=== PATIENT | male | born 1950 | race Caucasian/White ===

== ENCOUNTER 2018-02-03 18:50 | Emergency (ER) | payer OTHER ==
[2016-05-01 14:12] VITALS: BP 168/81
[~2018-02-03] VITALS: Ht 172.7 cm; Wt 90.7 kg
[~2018-02-03 18:50] MED LIST: ONDA4TAB10 SL
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
== END 2018-02-03 19:18 | disposition home or self-care (01) ==
LOC: ER 18:50
DX: G89.29 Other chronic pain (principal); M54.5 Low back pain; Z76.5 Malingerer [conscious simulation]; F10.20 Alcohol dependence, uncomplicated; Y90.9 Presence of alcohol in blood, level not specified
CPT/HCPCS: 99281